=== PATIENT | male | born 1960 | race Caucasian/White ===

== ENCOUNTER 2020-03-12 08:00 | Outpatient (RCR) | payer BC, SELFPAY ==
--- NOTE | 2020-01-19 10:58 | PTOPEVAL ---
INITIAL PHYSICAL THERAPY EVALUATION and PLAN OF CARE Thank you for referring Petr Kelley to [facility]. Petr will be seen 1-2x/wk x 6 wks. Please review, sign, date and return this plan of care JAMA. I agree with and certify that the following plan of care is medically necessary. Referring Physician Date Admitting Provider: Attending Provider: Case Key, Referring Provider: *PT Outpatient Evaluation Start: 01/19/20 09:12 Freq: Status: Active Protocol: Document 01/19/20 09:00 MAX (Rec: 01/19/20 10:19 MAX [id number]) Therapy Assessment Status Assessment Status Assessment Status Evaluation Outpatient Past Medical History Past Medical History Source of Past Medical History Patient Neurological History Hx Neurological Disorders No Significant History Cardiovascular History Hx Cardiac Disorders No Significant History Respiratory History Hx Other Respiratory Disorders Yes: smokes 1ppd x 35 yrs Gastrointestinal History Hx Gastrointestinal Disorders No Significant History Genitourinary History Hx Genitourinary Disorders No Significant History Musculoskeletal History Hx Musculoskeletal Disorders No Significant History Endocrine History Hx Endocrine Disorders No Significant History HEENT History Hx Meniere's Syndrome Yes Hx Eye Surgery Yes: eye lens implant surgery- bilat ~ 5 yrs ago Other History Hx Other Medical Conditions Yes: recovering alcoholic - sober x1.5 yrs this episode Evaluation Information Problem Diagnosis vertigo Onset ~ 10 years Subjective Information Did see specialists in the Query Text:As Reported By Patient/ past - did receive medication Family for dizziness - didn't seem to help Episodes of dizziness have been occurring - usually was having dizziness with moving from horizontal to vertical positions - but lately when reclined in recliner - turning head to R - will feel the dizziness Occasionally when rolling over in bed, but definitely feels the dizziness with getting up from lying down - will move quickly Prior Level of Function Activity Level (Last 3 Months) Occupation did work for [employer] as [email or web address] Left Medications Home Meds (Include: OTC, RX, Vitamins, OTC sinus medication Herbals, D
--- NOTE | 2020-02-03 08:02 | PCPTNOTE ---
Petr called to cancel - he will be out of town.
--- NOTE | 2020-03-12 11:00 | PTOPEVAL ---
PHYSICAL THERAPY RE-EVALUATION and UPDATED PLAN OF CARE Thank you for referring Petr Kelley to [facility]. Petr has made gains in PT - he has received 5 visits. I think he would benefit from further skilled PT but he is not certain that he wants to continue or not. His plan of care needs to be renewed, therefore I went ahead and updated his plan of care in case he does continue. Please review, sign, date and return this plan of care JAMA. I agree with and certify that the following plan of care is medically necessary. Referring Physician Date Admitting Provider: Attending Provider: Case Key, Referring Provider: *PT Outpatient Evaluation Start: 01/19/20 09:12 Freq: Status: Active Protocol: Document 03/12/20 08:05 MAX (Rec: 03/12/20 10:47 MAX [id number]) Therapy Assessment Status Assessment Status Assessment Status Re-evaluation Evaluation Information Problem Subjective Information Petr states that he is able to Query Text:As Reported By Patient/ get on and off equipment at Family his property in [facility] okay - has to be careful. He still has difficulty walking initially after being in the car driving several hours. Walking in the dark is a slight bit better. He is working on trying to bend his knees more when walking up and down inclines and with walking in general. He was out shopping x 3 hours - increase leg fatigue present and increased difficulty with walking. Pain Assessment Timing of Pain Assessment Timing of Pain Assessment Assessment Self Report Self Report Pain Level 0 Pain Score Pain Score 0: Self Report Gait Assessment Gait Pattern Assessment Other Gait Observations in stance phase - knees are kept very straight - in a locked position, but knee flexion is present with swing phase. Heel/toe pattern present with increase in supination. PT Clinical Summary Clinical Summary Protocol: PTEVCODE PT Clinical Summary tandem standing - needs mild UE to get into position but can hold position 30 sec + each way. standing on fom with eyes open and eyes closed - greater
--- NOTE | 2020-04-09 15:01 | PCPTNOTE ---
PHYSICAL THERAPY DISCHARGE NOTE Admitting Provider: Attending Provider: Case Key, Patient:Petr Kelley Date of :1960 Petr has not returned for any further treatments since 03/12/2020, therefore he will be discharged at this time. ePtr?s initial visit was on 01/19/2020 09:00 and he had a total of 5 visits. The goals have been partially met. Thank you for referring Petr to [facility]. Please review, sign, date and return this discharge summary JAMA. I have been updated about Petr's current status and I agree with discharge from the above service at this time. Referring Physician Date
== END 2020-04-10 14:17 | disposition home or self-care (01) ==
LOC: ANHHIPT 08:00
PROVIDERS: PCP Internal Medicine; Visit Provider Internal Medicine
DX: R42 Dizziness and giddiness (principal)
CPT/HCPCS: 97110; 97162

== ENCOUNTER 2022-04-04 04:06 | Observation (INO) | payer BC, SELFPAY ==
[2022-04-04] VITALS (13 sets, daily range): BP systolic 115–160; BP diastolic 81–98; PULSE 55–116; RESP 18–22; TEMP 36.1–36.9; O2SAT 95–100; BMI 25.4; BMI 25.2
--- NOTE | 2022-04-04 | ECHO_ITS ---
Patient Info Name: Petr Kelley Age: 62 years : 1960 Gender: Male Ht: 69 in Wt: 172 lbs BSA: 1.96 m2 HR: 116 bpm BP: 119 / 83 mmHg Heart Rhythm: Sinus Rhythm Technical Quality: Fair Exam Date: 04/04/2022 8:51 AM Exam Location: [facility] Pulmonary Patient Status: Outpatient Admit Date: 04/04/2022 Staff Ordering Physician: Sandi Aguirre MD Real Estate Recruiter: America Chen RDCS Attending Provider: Efrain Benitez MD Referring Physician: Timothy HARLEY; Exam Type: CA echo doppler color flow Study Info Indications I48.0 - Paroxysmal atrial fibrillation Complete two-dimensional, color flow and Doppler transthoracic echocardiogram is performed. Summary 1. Complete two-dimensional, color flow and Doppler transthoracic echocardiogram is performed. 2. Left ventricular hypertrophy with hyperdynamic systolic function and grade 1 diastolic noncompliance. 3. No valvular dysfunction. 4. Normal atrial dimensions. Left Ventricle Left ventricular chamber dimension is normal. Left ventricular systolic function is hyperdynamic, estimated at >70%. There is moderate concentric increased left ventricular wall thickness. The left ventricular diastolic function is grade I diastolic dysfunction. Right Ventricle Right ventricular chamber dimension is normal. Left Atria Left atrial chamber dimension is normal. Right Atria Right atrial chamber dimension is normal. Aortic Valve The aortic valve is trileaflet. Pulmonic Valve The pulmonic valve is normal. Mitral Valve The mitral valve has normal leaflets. Tricuspid Valve The tricuspid valve leaflets are normal. Pericardium/Pleural The pericardium appears normal. Aorta The aortic root size at the sinus of Valsalva is normal. Left Ventricular Outflow Tract Name Value Normal LVOT 2D LVOT Diameter 2.1 cm LVOT Doppler LVOT Peak Gradient 5 mmHg LVOT Mean Gradient 3 mmHg LVOT VTI 18 cm LVOT VTI/AV VTI Ratio 1.0 LVOT Stroke Volume 64 ml LVOT CO 5.4 l/min LVOT CI 2.8 l/min/m2 Pulmonic Valve Name Value Normal PV Doppler PV Peak Gradient 4 mmHg Mitral Valve Name Value Normal MV Doppler MV Decel [place] 145 cm/s2 MV PHT 94 ms MV Area (PHT) 2.3 cm2 4.0-5.0 MV Diastolic Function
--- NOTE | ~2022-04-04 | US_ITS ---
EXAMINATION: US right upper quadrant DATE: 04/04/2022 14:31 INDICATION: Right upper quadrant pain TECHNIQUE: Multiple grayscale and Doppler ultrasound images of the abdomen were obtained. COMPARISON: None available FINDINGS: Bowel gas obscures visualization of the pancreas. The visualized portions of the pancreas a re unremarkable. The liver is normal with normal echogenicity and echotexture. No surface nodularity. Normal hepatopetal flow in the main portal vein. The gallbladder is normal with no abnormal wall thi ckening, pericholecystic fluid or stones. The normal common bile duct measures 5 mm. There was no son ographic [place] sign. IMPRESSION: 1. Normal sonographic study of the gallbladder. Reviewed, dictated and finalized at location B.
--- NOTE | 2022-04-04 04:18 | PC.NURSE ---
Direct admit from [facility] in room 231 at 0410 on 04/04/22. This patient, Petr Kelley, was admitted to IMU Room 231-01. Patient/family oriented to hospital policies and general routines including ID bracelet, bed and alarms, visiting hours, pain management, procedures, bathroom and other care routines, personal items, smoking policy, room service/diet, and visiting hours. Information on how to activate the Rapid Response Team has been discussed. Patient/Family are encouraged to report perceived risks to care and to ask questions if they do not understand what they are told or what they should do.
[2022-04-04] MEDS: diazePAM INJ (*CRX) 10 MG/2 ML SYRINGE 5 MG IV PUSH (04:33)
--- NOTE | 2022-04-04 04:36 | PM.IMHP ---
H&P: HPI History of Present Illness Date/Time: 04/04/22 04:36 Chief Complaint: tremors Narrative: This is a 62-year-old male with past medical history significant for alcohol dependence, tobacco dependence. Patient presents as a direct admit from [facility] where he was admitted due to alcohol withdrawal patient decided to go cold turkey on his alcohol intake for the last 2 days started dry heaving and having tremors no formication, no hallucinations, has been very anxious. Patient was found to have atrial fibrillation with rapid ventricular response placed on a Cardizem drip has been transferred to our facility for further evaluation management and treatment. Patient denies any fevers, rigors, chills, nausea, vomiting, diarrhea, abdominal pain, chest pain, shortness of breath, PND, orthopnea, ankle swelling, syncope, near syncope. Patient has a diffuse headache no vision changes. Patient drinks up to a pt of alcohol daily and smokes 1 pack of cigarettes daily. Review of Systems Review of Systems: Tremors, generalized anxiety. Constitutional: Constitutional: Denies chills, Denies fatigue, Denies fever(s), Denies malaise, Denies night sweats and Denies weakness Eyes: Eyes: Denies change in vision ENT: Denies dysphagia, Denies vertigo, Denies dizziness and Denies odynophagia Cardiovascular: Cardiovascular: Denies chest pain, Denies syncope, Denies lightheadedness and Denies palpitations Respiratory: Respiratory: Denies chest congestion, Denies cough, Denies excessive phlegm production, Denies pain on inspiration, Denies dyspnea on exertion and Denies wheezing Gastrointestinal: Gastrointestinal: Denies abdominal pain, Denies dyspepsia, Denies heartburn, Reports nausea and Denies vomiting Genitourinary: Genitourinary: Denies dysuria Musculoskeletal: Musculoskeletal: Denies back pain, Denies myalgias and Denies muscle weakness Integumentary/Breasts: Skin/Breast: Denies rash Neurologic: Denies vertigo, Denies dizziness, Reports headache(s), Denies focal weakness, Denies Sensory deficit (Neuro), Denies tingling, Denies paresthesias and Reports tremor(s) Psychiatric: Psychiatric: Reports anxiety, Denies auditory hallucinations and Denies visual hallucinations Endocrine: Endocrine: Denies cold intolerance, Denies flushing, Denies heat intolerance, Denies polyphagia, Denies polydipsia and Denies palpitations Hematologic/Lymphatic: Hematologic/Lymphatic: Reports no additional hematologic/lymphatic complaints and Reports as per HPI Allergic/Immunologic: Allergic/Immunologic: Reports no additional allergic/immunologic complaints and Reports as per HPI Meds Home Medications and Allergies Home Medications Medication Instructions Recorded Confirmed Type aspirin 81 mg tablet,delayed 81 mg PO DAILY 04/04/22 04/04/22 History release atorvastatin 80 mg tablet 80 mg PO HS 04/04/22 04/04/22 History clopidogrel 75 mg tablet 75 mg PO DAILY 04/04/22 04/04/22 History folic acid 1 mg tablet 1 mg PO DAILY 04/04/22 04/04/22 History hydroxyzine pamoate 25 mg capsule 25 mg PO TID PRN Anxiety 04/04/22 04/04/22 History sertraline 25 mg tablet 25 mg PO DAILY 04/04/22 04/04/22 History Allergies Allergy/AdvReac Type Severity Reaction Status Date / Time No Known Allergies Allergy Verified 04/04/22 04:24 Vital Signs Vital Signs - 24 hr 04/04/22 04:00 Temperature 98.0 F Pulse Rate 84 Respiratory Rate 22 H Blood Pressure 119/83 Pulse Oximetry 99 Exam Narrative: Patient is laying in bed Const: General: comfortable, no acute distress, well developed, alert, awake and other ( apprehensive, anxious) Nutritional Appearance: average body habitus Orientation/consciousness: patient oriented x3 HENMT: Head: normal to inspection, normocephalic and atraumatic Ears: hearing grossly normal bilaterally Face and sinus: normal facial exam Eyes: General: appearance normal, both eyes and all related structures Pupils: Equal
[2022-04-04] MEDS: ACETAMINOPHEN 325 MG TABLET 650 MG PO ×2 (05:10→10:00)
[2022-04-04 05:21] LABS: Glucose Point of Care 145 mg/dl (65-105)
[2022-04-04] MEDS: chlordiazePOXIDE (*CRX) 25 MG CAPSULE 50 MG PO ×3 (05:34→17:26)
[2022-04-04] MEDS: FUROSEMIDE INJ 40 MG/4 ML VIAL IV PUSH (05:34)
[2022-04-04 05:37] LABS: Basophils Absolute Auto 0.1 K/mm3 (0.0-0.1); Basophils Percent Auto 0.7 % (0.2-1.2); Hematocrit 39.9 % (42.0-52.0); Hemoglobin 13.9 g/dL (14.0-18.0); Immature Granulocyte Absolute 0.03 K/mm3 (0.00-0.031); Immature Granulocyte Percent A 0.3 % (0-0.5); Lymphocytes Absolute Auto 1.21 K/mm3 (0.9-3.2); Lymphocytes Percent Auto 13.7 % (18.3-44.2); Mean Corpuscular HGB Conc 34.8 g/dl (32-36); Mean Corpuscular Hemoglobin 30.8 pg (26-34); Mean Corpuscular Volume 88.3 fl (80-100); Mean Platelet Volume 9.2 fl (7.4-10.4); Monocytes Absolute Auto 0.7 K/mm3 (0.1-0.6); Monocytes Percent Auto 8.2 % (2.6-8.5); Neutrophils Absolute Auto 6.8 K/mm3 (1.3-6.7); Neutrophils Percent Auto 77.1 % (45.5-73.1); Platelet Count Result 238 k/mm3 (150-375); Red Blood Count 4.52 M/mm3 (4.6-6.20); Red Cell Distribution Width 15.9 % (11.5-14.5); White Blood Count 8.8 K/mm3 (4.5-10.0)
[2022-04-04 05:44] LABS: Phosphorus 2.2 mg/dL (2.5-4.5)
[2022-04-04 05:58] LABS: Alanine Aminotransferase 55 U/L (6-50); Albumin Level 4.3 g/dL (3.5-5.1); Alkaline Phosphatase 109 U/L (38-126); Anion Gap 10 mmol/L (8-16); Aspartate Amino Transferase 89 U/L (17-59); Bilirubin,Total 2.1 mg/dL (0.2-1.3); Blood Urea Nitrogen 8 mg/dL (9-20); Calcium 8.4 mg/dL (8.4-10.2); Carbon Dioxide 25 mmol/L (22-30); Chloride 97 mmol/L (98-107); Creatine Kinase 250 U/L (55-170); Estimated CRCL calculation 97 ml/min; Estimated Glomerular Filt Rate > 60; Glucose 122 mg/dL (65-110); Potassium 3.3 mmol/L (3.4-5.0); Sodium 132 mmol/L (137-145)
[2022-04-04] MEDS: THIAMINE HCL INJ 100 MG, FOLIC ACID INJ 1 MG, MULTIVITAMINS-12 INJ VIAL 1 5 ML, MULTIVI... IV CONT (06:31)
[2022-04-04] MEDS: dilTIAZem 100 MG/100 ML 100 MG/100 ML BAG IV CONT (06:34)
[2022-04-04] MEDS: ENOXAPARIN 80 MG/0.8 ML SYRINGE 78 MG SUB-Q (06:39)
--- NOTE | 2022-04-04 07:36 | ECG_ITS ---
Measurements Intervals [place] Rate: 84 P: NH: 0 QRS: -38 QRSD: 92 T: 24 QT: 403 QTc: 477 Interpretive Statements ATRIAL FIBRILLATION MARKED LEFT AXIS DEVIATION [QRS AXIS < -30] ABNORMAL ECG NO PREVIOUS ECG AVAILABLE FOR COMPARISON Electronically Signed On 04-04-2022 12:47:45 CDT by Merritt Mac M.D.
[2022-04-04] MEDS: LORazepam INJ (*CRX) 2 MG/ML VIAL 1 MG IV PUSH ×4 (08:07→20:23)
[2022-04-04] MEDS: SERTRALINE HCL 25 MG TABLET PO (08:08)
[2022-04-04] MEDS: hydrOXYzine pamoate 25 MG CAPSULE PO (08:08)
[2022-04-04] MEDS: CLOPIDOGREL BISULFATE 75 MG TABLET PO (08:08)
--- NOTE | 2022-04-04 08:36 | PM.CNCAR ---
Assessment and Plan Assessment and plan (1) A-fib: Code(s): I48.91 - Unspecified atrial fibrillation Status: Acute Plan 62-year-old patient with alcoholism who presents with alcohol withdrawal symptoms and was in atrial fib with RVR. He has spontaneously converted to sinus rhythm during my physical examination. The patient has no prior knowledge of any cardiac problems. For reasons that I cannot discern by speaking to him he is taking aspirin and clopidogrel. I am going to recommend stopping his diltiazem infusion and starting him on metoprolol. He is not a reasonable candidate for anticoagulation since he is in actively drinking alcoholic. We will review his echocardiogram after it is done but at this but time I believe I am simply going to recommend treating him with metoprolol and conservative follow-up. Merritt Mac MD [facility] History of Present Illness History of Present Illness Consult date/time: 04/04/22 08:36 Consult reason: atrial fibrillation Reason For Visit: New Afib with RVR Narrative: This is a 62-year-old man I am seeing this morning at the request of the hospitalist because of atrial fibrillation. He was transferred here from the emergency room at [place] yesterday because of atrial fibrillation with rapid ventricular response. He came to the emergency room up there last evening apparently because of significant headache that was attributed to alcohol withdrawal. He states he is a chronic alcoholic and drinks a lot of vodka and 1 of his friends encouraged him to try to quit drinking cold turkey. He states when he has done this in the past he develops severe headaches and he developed this last evening and so he went to the emergency room. He did not have any sense of palpitations tachycardia or any other symptoms in the chest to make him aware that he was in atrial fibrillation. While he was there he was found to be in AFib with RVR and he was of course placed on intravenous diltiazem and then transferred to this hospital for further management. He was in IMU since arrival here and states that he has been essentially asymptomatic. He has intravenous diltiazem running as well as a banana bag. He denies any symptoms of chest pain shortness of breath orthopnea PND or edema. He has never had a syncopal episode any does not remember having any sort of a cardiac problem in the past. He is not aware of what his previous medical problems are. There is a home med list on his chart that consists of aspirin atorvastatin and clopidogrel. He does not know if for why he is taking any of those medications. While I was in the middle of examining the patient he converted to sinus rhythm. He was unaware of the cardioversion either he feels no different whether he is in atrial fib or sinus rhythm Review of Systems Constitutional: Constitutional: Reports no additional constitutional complaints Eyes: Eyes: Reports no additional eye complaints ENT: Reports system reviewed and no additional complaints, except as documented Cardiovascular: Cardiovascular: Reports no additional cardiovascular complaints Respiratory: Respiratory: Reports no additional respiratory complaints Gastrointestinal: Gastrointestinal: Reports heartburn Musculoskeletal: Musculoskeletal: Reports no additional musculoskeletal complaints Integumentary/Breasts: Skin/Breast: Reports system reviewed and no additional complaints, except as docu Neurologic: Reports system reviewed and no additional complaints, except as documented Psychiatric: Comments: Chronic alcohol abuse/drinks a lot of vodka Endocrine: Endocrine: Reports no additional endocrine complaints Hematologic/Lymphatic: Hematologic/Lymphatic: Reports no additional hematologic/lymphatic complaints Allergic/Immunologic: Allergic/Immunologic: Reports no additional allergic/immunologic complaints [facility] Family History Family History (Updated 04/04/22 @ 05:29 by Jolanta Burroughs,
[2022-04-04] MEDS: METOPROLOL SUCCINATE EXT REL 50 MG TABCR PO (09:32)
[2022-04-04 09:36] LABS: Prothrombin Time 12.7 Seconds (11.1-14.7)
--- NOTE | 2022-04-04 09:42 | PM.IMPN ---
Progress Note: A&P Assessment and Plan (1) A-fib: Code(s): I48.91 - Unspecified atrial fibrillation Status: Acute (2) Alcohol withdrawal: Code(s): F10.939 - Alcohol use, unspecified with withdrawal, unspecified Status: Acute (3) EtOH dependence: Code(s): F10.20 - Alcohol dependence, uncomplicated Status: Acute (4) Tobacco dependence: Code(s): F17.200 - Nicotine dependence, unspecified, uncomplicated Status: Acute Plan # AFib with RVR started on anticoagulation. Converted spontaneously to sinus rhythm. Cardiology consulted. He was Started on Cardizem drip which has been discontinued now. Started on metoprolol. Not a candidate for anticoagulation as he is actively drinking. He is back on AFib # headache Tylenol p.r.n. # Alcohol withdrawal on CIWA protocol banana bag monitor electrolytes. On Librium p.o. and Ativan p.r.n. # electrolyte imbalances: Replace and monitor # alcohol dependence referral for a 12 step program as an outpatient basis. Elevated liver enzymes. # elevated liver enzymes check ultrasound liver hepatitis profile # tobacco dependence # hyperlipidemia # DVT prophylaxis Lovenox therapeutic dose will switch to DVT prophylaxis dose Subjective Date/time seen: 04/04/22 09:42 Interval history: HPI:This is a 62-year-old male with past medical history significant for alcohol dependence, tobacco dependence.? Patient presents as a direct admit from [facility] where he was admitted due to alcohol withdrawal? patient decided to go cold turkey on his alcohol intake for the last 2 days started dry heaving and having tremors no formication, no hallucinations, has been very anxious.? Patient was found to have atrial fibrillation with rapid ventricular response placed on a Cardizem drip has been transferred to our facility for further evaluation management and treatment.? Patient denies any fevers, rigors, chills, nausea, vomiting, diarrhea, abdominal pain, chest pain, shortness of breath, PND, orthopnea, ankle swelling, syncope, near syncope.? Patient has a diffuse headache no vision changes.? Patient drinks up to a pt of alcohol daily and? smokes 1 pack of cigarettes daily. 04/04/2022 no overnight events. Complains of some headache. No nausea. Is off Cardizem drip now and beta-marcus was given. Telemetry reviewed in sinus rhythm. Does not know why he is on aspirin and Plavix Review of Systems Review of Systems: All systems reviewed & are unremarkable except as noted in HPI and below Exam Narrative: GENERAL: The patient is well developed, a bit tremulous. Not in acute distress HEENT: Nonicteric sclerae, PERRLA, EOMI. Oropharynx clear. Dry mucous membranes. Conjunctivae appear well perfused. CHEST: Chest wall is nontender. HEART: Regular rate and rhythm without murmur, rubs, or gallops LUNGS: Clear to auscultation bilaterally. no respiratory distress ABDOMEN: Soft, positive bowel sounds, non-tender, no organomegaly. SKIN: No rash, no excessive bruising, petechiae, or purpura. NEUROLOGIC: Cranial nerves II-XII intact, alert and oriented x 3, no gross motor deficits EXTREMITIES: no edema, cyanosis or clubbing Objective Data Vital Signs Vital Signs: Vital Signs - 24 hr 04/04/22 04:00 04/04/22 06:34 04/04/22 08:00 Temperature 98.0 F Pulse Rate 84 116 H Respiratory Rate 22 H Blood Pressure 119/83 Pulse Oximetry 99 Oxygen Delivery Room Air 04/04/22 08:00 04/04/22 09:32 04/04/22 09:35 Temperature 97.3 F L Pulse Rate 55 L 87 84 Respiratory Rate 22 H Blood Pressure 160/82 H 160/82 H Pulse Oximetry 100 Oxygen Delivery Intake/Output Intake/Output: Intake & Output 04/01/22 04/02/22 04/03/22 04/04/22 23:59 23:59 23:59 23:59 Intake Total 100 Output Total 1150 Balance -1050 Meds/Results Medications: Active Medications Generic Name Dose Route Start Last Admin Trade Name Freq PRN Reason Stop Dose Admin Diego
[2022-04-04 10:54] LABS: Hepatitis B Surface Antigen Negative (Negative)
[2022-04-04 11:00] LABS: HAV RESULT Negative (Negative); Hepatitis B Core IgM Result Negative (Negative)
[2022-04-04] MEDS: POTASSIUM PHOS,M-BASIC-D-BASIC 40 MMOL in SODIUM CHLORIDE 0.9% IV 250 ML 43.89 MMOL IVPB (11:07)
[2022-04-04 11:11] LABS: Hepatitis C Virus Antibody Negative (Negative)
[2022-04-04 11:34] LABS: Glucose Point of Care 113 mg/dl (65-105)
[2022-04-04 18:09] LABS: Glucose Point of Care 107 mg/dl (65-105)
[2022-04-05] VITALS (16 sets, daily range): BP systolic 123–147; BP diastolic 79–95; PULSE 66–110; RESP 18–20; TEMP 36.3–37.2; O2SAT 96–100
[2022-04-05 00:21] LABS: Glucose Point of Care 101 mg/dl (65-105)
[2022-04-05] MEDS: chlordiazePOXIDE (*CRX) 25 MG CAPSULE 50 MG PO ×5 (00:40→23:00)
[2022-04-05] MEDS: LORazepam INJ (*CRX) 2 MG/ML VIAL 1 MG IV PUSH ×2 (00:52→04:17)
[2022-04-05 04:51] LABS: Basophils Absolute Auto 0.1 K/mm3 (0.0-0.1); Basophils Percent Auto 1.2 % (0.2-1.2); Eosinophils Absolute Auto 0.1 K/mm3 (0-0.3); Eosinophils Percent Auto 2.2 % (0-4.4); Hematocrit 38.7 % (42.0-52.0); Hemoglobin 13.2 g/dL (14.0-18.0); Immature Granulocyte Absolute 0.02 K/mm3 (0.00-0.031); Immature Granulocyte Percent A 0.4 % (0-0.5); Lymphocytes Percent Auto 35.2 % (18.3-44.2); Mean Corpuscular HGB Conc 34.1 g/dl (32-36); Mean Corpuscular Hemoglobin 31.1 pg (26-34); Mean Corpuscular Volume 91.1 fl (80-100); Mean Platelet Volume 9.2 fl (7.4-10.4); Monocytes Absolute Auto 0.5 K/mm3 (0.1-0.6); Neutrophils Absolute Auto 2.6 K/mm3 (1.3-6.7); Platelet Count Result 175 k/mm3 (150-375); Red Blood Count 4.25 M/mm3 (4.6-6.20); Red Cell Distribution Width 16.5 % (11.5-14.5); White Blood Count 5.1 K/mm3 (4.5-10.0)
[2022-04-05 05:05] LABS: Alanine Aminotransferase 47 U/L (6-50); Albumin Level 3.9 g/dL (3.5-5.1); Alkaline Phosphatase 86 U/L (38-126); Anion Gap 6 mmol/L (8-16); Aspartate Amino Transferase 66 U/L (17-59); Bilirubin,Total 1.2 mg/dL (0.2-1.3); Blood Urea Nitrogen 13 mg/dL (9-20); Calcium 8.7 mg/dL (8.4-10.2); Carbon Dioxide 29 mmol/L (22-30); Chloride 98 mmol/L (98-107); Estimated CRCL calculation 69 ml/min; Estimated Glomerular Filt Rate > 60; Glucose 90 mg/dL (65-110); Magnesium 2.2 mg/dL (1.6-2.3); Phosphorus 4.1 mg/dL (2.5-4.5); Potassium 3.2 mmol/L (3.4-5.0); Sodium 133 mmol/L (137-145)
--- NOTE | 2022-04-05 08:26 | PM.IMPN ---
Progress Note: A&P Assessment and Plan (1) A-fib: Code(s): I48.91 - Unspecified atrial fibrillation Status: Acute (2) Alcohol withdrawal: Code(s): F10.939 - Alcohol use, unspecified with withdrawal, unspecified Status: Acute (3) EtOH dependence: Code(s): F10.20 - Alcohol dependence, uncomplicated Status: Acute (4) Tobacco dependence: Code(s): F17.200 - Nicotine dependence, unspecified, uncomplicated Status: Acute Plan # AFib with RVR started on anticoagulation. Converted spontaneously to sinus rhythm. Cardiology consulted. He was Started on Cardizem drip which has been discontinued now. Started on metoprolol. Not a candidate for anticoagulation as he is actively drinking. He is back on sinus rhythm. And remains in sinus rhythm # headache Tylenol p.r.n. # Alcohol withdrawal on CIWA protocol banana bag monitor electrolytes. On Librium p.o. and Ativan p.r.n. CIWA score decreasing. received a dose of Valium and Lasix at night # electrolyte imbalances: Replace and monitor. Replace potassium today # alcohol dependence referral for a 12 step program as an outpatient basis. Elevated liver enzymes. # elevated liver enzymes right upper quadrant ultrasound unremarkable. hepatitis profile Negative # tobacco dependence # hyperlipidemia # DVT prophylaxis Lovenox therapeutic dose will switch to DVT prophylaxis dose Subjective Date/time seen: 04/05/22 08:26 Interval history: HPI:This is a 62-year-old male with past medical history significant for alcohol dependence, tobacco dependence.? Patient presents as a direct admit from [facility] where he was admitted due to alcohol withdrawal? patient decided to go cold turkey on his alcohol intake for the last 2 days started dry heaving and having tremors no formication, no hallucinations, has been very anxious.? Patient was found to have atrial fibrillation with rapid ventricular response placed on a Cardizem drip has been transferred to our facility for further evaluation management and treatment.? Patient denies any fevers, rigors, chills, nausea, vomiting, diarrhea, abdominal pain, chest pain, shortness of breath, PND, orthopnea, ankle swelling, syncope, near syncope.? Patient has a diffuse headache no vision changes.? Patient drinks up to a pt of alcohol daily and? smokes 1 pack of cigarettes daily. 04/04/2022 no overnight events. Complains of some headache. No nausea. Is off Cardizem drip now and beta-marcus was given. Telemetry reviewed in sinus rhythm. Does not know why he is on aspirin and Plavix 04/05/2022 replace potassium. CIWA score improved this morning 7. Continue to monitor for alcohol withdrawal currently on Librium. No other complaints feels better Review of Systems Review of Systems: All systems reviewed & are unremarkable except as noted in HPI and below Exam Narrative: GENERAL: The patient is well developed, less tremulous. Not in acute distress HEENT: Nonicteric sclerae, PERRLA, EOMI. Oropharynx clear. Dry mucous membranes. Conjunctivae appear well perfused. CHEST: Chest wall is nontender. HEART: Regular rate and rhythm without murmur, rubs, or gallops LUNGS: Clear to auscultation bilaterally. no respiratory distress ABDOMEN: Soft, positive bowel sounds, non-tender, no organomegaly. SKIN: No rash, no excessive bruising, petechiae, or purpura. NEUROLOGIC: Cranial nerves II-XII intact, alert and oriented x 3, no gross motor deficits EXTREMITIES: no edema, cyanosis or clubbing Objective Data Vital Signs Vital Signs: Vital Signs - 24 hr 04/04/22 09:32 04/04/22 09:35 04/04/22 08:37 Temperature Pulse Rate 87 84 84 Respiratory Rate Blood Pressure 160/82 H Pulse Oximetry Oxygen Delivery 04/04/22 10:10 04/04/22 12:00 04/04/22 12:00 Temperature 98.4 F Pulse Rate 81 81 82 Respiratory Rate 22 H 20 Blood Pressure 133/82 Pulse Oximetry 100 95 Oxygen Delivery Room Air
[2022-04-05] MEDS: POTASSIUM CHLORIDE 20 MEQ TABLET 40 MEQ PO (10:15)
[2022-04-05] MEDS: METOPROLOL SUCCINATE EXT REL 50 MG TABCR PO (10:31)
[2022-04-05] MEDS: CLOPIDOGREL BISULFATE 75 MG TABLET PO (10:31)
[2022-04-05] MEDS: ENOXAPARIN 40 MG/0.4 ML SYRINGE SUB-Q (10:32)
[2022-04-05] MEDS: SERTRALINE HCL 25 MG TABLET PO (10:32)
[2022-04-05 11:35] LABS: Glucose Point of Care 110 mg/dl (65-105)
--- NOTE | 2022-04-05 14:26 | PM.PNCARD ---
Progress Note: A&P Assessment and Plan (1) A-fib: Code(s): I48.91 - Unspecified atrial fibrillation Status: Acute Assessment and Plan: Still in sinus rhythm. Continue beta-marcus and clopidogrel. Because of his alcohol use, previously deemed not an anticoagulation candidate at this point. (2) Alcohol withdrawal: Code(s): F10.939 - Alcohol use, unspecified with withdrawal, unspecified Status: Acute Assessment and Plan: Alcohol and tobacco cessation counseling advised (3) Tobacco dependence: Code(s): F17.200 - Nicotine dependence, unspecified, uncomplicated Status: Acute Assessment and Plan: Tobacco abuse counseling (4) Hypokalemia: Code(s): E87.6 - Hypokalemia Status: Acute Assessment and Plan: KCL 40 mEq p.o. x1 Subjective Date/time seen: 04/05/22 14:26 Interval history: HPI:This is a 62-year-old male with past medical history significant for alcohol dependence, tobacco dependence.? Patient presents as a direct admit from [facility] where he was admitted due to alcohol withdrawal? patient decided to go cold turkey on his alcohol intake for the last 2 days started dry heaving and having tremors no formication, no hallucinations, has been very anxious.? Patient was found to have atrial fibrillation with rapid ventricular response placed on a Cardizem drip has been transferred to our facility for further evaluation management and treatment.? Date of service 04/05/2022: He is feeling little bit better. No chest pain or shortness of breath. Review of Systems Constitutional: Constitutional: Reports no additional constitutional complaints Eyes: Eyes: Reports no additional eye complaints ENT: Reports system reviewed and no additional complaints, except as documented Cardiovascular: Cardiovascular: Reports no additional cardiovascular complaints Respiratory: Respiratory: Reports no additional respiratory complaints Gastrointestinal: Gastrointestinal: Reports heartburn Musculoskeletal: Musculoskeletal: Reports no additional musculoskeletal complaints Integumentary/Breasts: Skin/Breast: Reports system reviewed and no additional complaints, except as docu Neurologic: Reports system reviewed and no additional complaints, except as documented Endocrine: Endocrine: Reports no additional endocrine complaints Hematologic/Lymphatic: Hematologic/Lymphatic: Reports no additional hematologic/lymphatic complaints Allergic/Immunologic: Allergic/Immunologic: Reports no additional allergic/immunologic complaints Exam Narrative: Appears stated age Const: General: comfortable and no acute distress Other: Well-developed well-nourished white male appears about his stated age no distress at this time HENMT: Mouth: Yes moist mucous membranes Eyes: Sclera: sclerae normal Neck: Neck: supple and no JVD Other: Carotid pulses are unremarkable bilateral Resp: Effort & Inspection: normal respiratory effort Auscultation: clear to auscultation bilaterally Cardio: Rate: regular rate Rhythm: regular rhythm Other: No murmur no gallop no rub GI: Auscultation: normal bowel sounds Skin: General skin exam: normal color Neuro: Speech: normal speech Other: Alert and oriented x3 Extrem: General: no edema Other: Adequate distal pulses/no edema Psych: Mental Status: mental status grossly normal Objective Data Vital Signs Vital Signs: Vital Signs - 24 hr 04/04/22 16:00 04/04/22 16:00 04/04/22 16:00 Temperature 36.8 C Pulse Rate 76 76 80 Respiratory Rate 20 18 Blood Pressure 115/98 H Pulse Oximetry 95 98 Oxygen Delivery Room Air 04/04/22 20:00 04/04/22 23:42 04/05/22 03:38 Temperature 36.1 C L 36.9 C 36.6 C Pulse Rate 78 77 77 Respiratory Rate 20 20 20 Blood Pressure 151/81 H 145/98 H 147/85 H Pulse Oximetry 99 98 99 Oxygen Delivery 04/05/22 08:16 04/04/22 20:00 04/04/22 20:00 Temperature 36.6 C Pu
[2022-04-05] MEDS: POTASSIUM CHLORIDE 20 MEQ PACKET (FOR LIQUID) 40 MEQ PO (15:15)
[2022-04-05 16:24] LABS: Glucose Point of Care 99 mg/dl (65-105)
[2022-04-05 18:09] LABS: Glucose Point of Care 146 mg/dl (65-105)
[2022-04-05 19:52] LABS: Glucose Point of Care 134 mg/dl (65-105)
[2022-04-06 03:45] VITALS: BP 127/94; PULSE 68; RESP 17; TEMP 36.3; O2SAT 96
[2022-04-06 04:00] VITALS: BP 127/94
[2022-04-06] MEDS: chlordiazePOXIDE (*CRX) 25 MG CAPSULE 50 MG PO (05:04)
[2022-04-06 05:16] LABS: Basophils Absolute Auto 0.1 K/mm3 (0.0-0.1); Basophils Percent Auto 0.9 % (0.2-1.2); Eosinophils Absolute Auto 0.2 K/mm3 (0-0.3); Eosinophils Percent Auto 3.8 % (0-4.4); Hematocrit 37.5 % (42.0-52.0); Hemoglobin 12.6 g/dL (14.0-18.0); Immature Granulocyte Absolute 0.02 K/mm3 (0.00-0.031); Immature Granulocyte Percent A 0.4 % (0-0.5); Lymphocytes Absolute Auto 1.66 K/mm3 (0.9-3.2); Lymphocytes Percent Auto 30.2 % (18.3-44.2); Mean Corpuscular HGB Conc 33.6 g/dl (32-36); Mean Corpuscular Hemoglobin 31.3 pg (26-34); Mean Corpuscular Volume 93.3 fl (80-100); Mean Platelet Volume 9.7 fl (7.4-10.4); Monocytes Absolute Auto 0.6 K/mm3 (0.1-0.6); Monocytes Percent Auto 10.7 % (2.6-8.5); Platelet Count Result 148 k/mm3 (150-375); Red Blood Count 4.02 M/mm3 (4.6-6.20); Red Cell Distribution Width 16.4 % (11.5-14.5); White Blood Count 5.5 K/mm3 (4.5-10.0)
[2022-04-06 05:24] LABS: Alanine Aminotransferase 48 U/L (6-50); Albumin Level 3.9 g/dL (3.5-5.1); Alkaline Phosphatase 92 U/L (38-126); Anion Gap 10 mmol/L (8-16); Aspartate Amino Transferase 62 U/L (17-59); Bilirubin,Total 0.9 mg/dL (0.2-1.3); Blood Urea Nitrogen 13 mg/dL (9-20); Carbon Dioxide 24 mmol/L (22-30); Chloride 102 mmol/L (98-107); Estimated CRCL calculation 77 ml/min; Estimated Glomerular Filt Rate > 60; Glucose 95 mg/dL (65-110); Magnesium 1.9 mg/dL (1.6-2.3); Phosphorus 3.2 mg/dL (2.5-4.5); Potassium 3.6 mmol/L (3.4-5.0); Sodium 136 mmol/L (137-145)
[2022-04-06 08:25] LABS: Glucose Point of Care 112 mg/dl (65-105)
[2022-04-06 08:27] VITALS: PULSE 78
[2022-04-06] MEDS: METOPROLOL SUCCINATE EXT REL 50 MG TABCR PO (08:27)
[2022-04-06] MEDS: SERTRALINE HCL 25 MG TABLET PO (08:27)
[2022-04-06] MEDS: CLOPIDOGREL BISULFATE 75 MG TABLET PO (08:27)
[2022-04-06] MEDS: ENOXAPARIN 40 MG/0.4 ML SYRINGE SUB-Q (08:30)
--- NOTE | 2022-04-06 08:52 | PM.PNCARD ---
Progress Note: A&P Assessment and Plan (1) A-fib: Code(s): I48.91 - Unspecified atrial fibrillation Status: Acute Assessment and Plan: Still in sinus rhythm. Continue beta-marcus and clopidogrel. Because of his alcohol use, previously deemed not an anticoagulation candidate at this point. (2) Alcohol withdrawal: Code(s): F10.939 - Alcohol use, unspecified with withdrawal, unspecified Status: Acute Assessment and Plan: Alcohol and tobacco cessation counseling advised (3) Tobacco dependence: Code(s): F17.200 - Nicotine dependence, unspecified, uncomplicated Status: Acute Assessment and Plan: Tobacco abuse counseling (4) Hypokalemia: Code(s): E87.6 - Hypokalemia Status: Acute Assessment and Plan: Additional dose of KCL 40 mEq p.o. x1 now Subjective Date/time seen: 04/06/22 08:52 Interval history: HPI:This is a 62-year-old male with past medical history significant for alcohol dependence, tobacco dependence.? Patient presents as a direct admit from [facility] where he was admitted due to alcohol withdrawal? patient decided to go cold turkey on his alcohol intake for the last 2 days started dry heaving and having tremors no formication, no hallucinations, has been very anxious.? Patient was found to have atrial fibrillation with rapid ventricular response placed on a Cardizem drip has been transferred to our facility for further evaluation management and treatment.? Date of service 04/05/2022: He is feeling little bit better. No chest pain or shortness of breath. Date of service 04/06/2022: Confused. Dressed and ready to go. No chest pain or shortness of breath Review of Systems Constitutional: Constitutional: Reports no additional constitutional complaints Eyes: Eyes: Reports no additional eye complaints ENT: Reports system reviewed and no additional complaints, except as documented Cardiovascular: Cardiovascular: Reports no additional cardiovascular complaints Respiratory: Respiratory: Reports no additional respiratory complaints Gastrointestinal: Gastrointestinal: Reports heartburn Musculoskeletal: Musculoskeletal: Reports no additional musculoskeletal complaints Integumentary/Breasts: Skin/Breast: Reports system reviewed and no additional complaints, except as docu Neurologic: Reports system reviewed and no additional complaints, except as documented Endocrine: Endocrine: Reports no additional endocrine complaints Hematologic/Lymphatic: Hematologic/Lymphatic: Reports no additional hematologic/lymphatic complaints Allergic/Immunologic: Allergic/Immunologic: Reports no additional allergic/immunologic complaints Exam Narrative: Appears stated age Const: General: comfortable and no acute distress Other: Well-developed well-nourished white male appears about his stated age no distress at this time HENMT: Mouth: Yes moist mucous membranes Eyes: Sclera: sclerae normal Neck: Neck: supple and no JVD Other: Carotid pulses are unremarkable bilateral Resp: Effort & Inspection: normal respiratory effort Auscultation: clear to auscultation bilaterally Cardio: Rate: regular rate Rhythm: regular rhythm Other: No murmur no gallop no rub GI: Auscultation: normal bowel sounds Skin: General skin exam: normal color Neuro: Speech: normal speech Other: Alert and oriented x3 Extrem: General: no edema Other: Adequate distal pulses/no edema Psych: Mental Status: mental status grossly normal Objective Data Vital Signs Vital Signs: Vital Signs - 24 hr 04/05/22 10:31 04/05/22 12:18 04/05/22 10:00 Temperature 37.2 C Pulse Rate 84 78 96 Respiratory Rate 18 Blood Pressure 132/88 Pulse Oximetry 96 Oxygen Delivery 04/05/22 12:00 04/05/22 12:00 04/05/22 14:00 Temperature Pulse Rate 66 110 H Respiratory Rate Blood Pressure Pulse Oximetry Oxygen Delivery Room Air
--- NOTE | 2022-04-06 09:43 | PC.NURSE ---
Patient was seen by cardiology this morning and states the doctor told me I'm being discharged today . This RN called the hospitalist Dr. Benitez and confirmed that the patient needs to be tapered off of Librium before being discharged. Patient was upset after learning of this and stated he would like to leave AMA, education was given. While waiting for the AMA papers, this patient walked to the nurses station with his belongings and was cursing out loud nobody knows their Fing left from their right around here . IV's were removed, patient signed AMA papers and was walked out by the SOCIOLOGY RESEARCH ASSISTANT.
--- NOTE | 2022-04-06 15:42 | PM.DS ---
DS: Admitting Diagnosis Discharge Date 04/06/22 Admitting Diagnosis alcohol withdrawal DS: Discharge Diagnosis Discharge Diagnosis (1) A-fib: Code(s): I48.91 - Unspecified atrial fibrillation Status: Acute (2) Alcohol withdrawal: Code(s): F10.939 - Alcohol use, unspecified with withdrawal, unspecified Status: Acute (3) EtOH dependence: Code(s): F10.20 - Alcohol dependence, uncomplicated Status: Acute (4) Tobacco dependence: Code(s): F17.200 - Nicotine dependence, unspecified, uncomplicated Status: Acute DS: Summary Hospital Course Hospital Course: # AFib with RVR started on anticoagulation. Converted spontaneously to sinus rhythm. Cardiology consulted. He was Started on Cardizem drip which has been discontinued now. Started on metoprolol. Not a candidate for anticoagulation as he is actively drinking. He is back on sinus rhythm. And remains in sinus rhythm # headache Tylenol p.r.n. # Alcohol withdrawal on CIWA protocol banana bag monitor electrolytes. On Librium p.o. and Ativan p.r.n. CIWA score decreasing. Patient continued to improve. Patient was wanted to be discharged. However did not wanted to wait until like when evaluated him. Left against medical advise before I reach there.. # electrolyte imbalances: Replace and monitor. Replace potassium P.r.n. # alcohol dependence referral for a 12 step program as an outpatient basis. Elevated liver enzymes. # elevated liver enzymes right upper quadrant ultrasound unremarkable. hepatitis profile Negative # tobacco dependence # hyperlipidemia # DVT prophylaxis Lovenox Time Spent with Patient Time attestation: Total time spent providing and/or coordinating discharge services:30 minutes Exam Narrative: did not examine on the day of discharge due to patient leaving against medical advice DS: Data Data Completed and Pending Labs on day of discharge: Labs from last 24 hours 04/06/22 04/06/22 04/06/22 08:21 04:48 04:48 WBC 5.5 RBC 4.02 L Hgb 12.6 L Hct 37.5 L MCV 93.3 MCH 31.3 MCHC 33.6 RDW 16.4 H Plt Count 148 L MPV 9.7 Immature Gran % (Auto) 0.4 Neut % (Auto) 54.0 Lymph % (Auto) 30.2 [place] % (Auto) 10.7 H Eos % (Auto) 3.8 Baso % (Auto) 0.9 Lymph # (Auto) 1.66 [place] # (Auto) 0.6 Eos # (Auto) 0.2 Baso # (Auto) 0.1 Abs Immat Gran (auto) 0.02 Absolute Neuts (auto) 3.0 Absolute Nucleated RBC 0.0 Nucleated RBC % 0.0 Sodium 136 L Potassium 3.6 Chloride 102 Carbon Dioxide 24 Anion Gap 10 BUN 13 Creatinine 0.90 Estim Creat Clear Calc 77 Estimated GFR > 60 Glucose 95 POC Capillary Glucose 112 H Calcium 9.0 Phosphorus 3.2 Magnesium 1.9 Total Bilirubin 0.9 AST 62 H ALT 48 Alkaline Phosphatase 92 Total Protein 7.0 Albumin 3.9 04/05/22 04/05/22 04/05/22 19:35 18:06 16:09 WBC RBC Hgb Hct MCV MCH MCHC RDW Plt Count MPV Immature Gran % (Auto) Neut % (Auto) Lymph % (Auto) [place] % (Auto) Eos % (Auto) Baso % (Auto) Lymph # (Auto) [place] # (Auto) Eos # (Auto) Baso # (Auto) Abs Immat Gran (auto) Absolute Neuts (auto) Absolute Nucleated RBC Nucleated RBC % Sodium Potassium Chloride Carbon Dioxide Anion Gap BUN Creatinine Estim Creat Clear Calc Estimated GFR Glucose POC Capillary Glucose 134 H 146 H 99 Calcium Phosphorus Magnesium Total Bilirubin AST ALT Alkaline Phosphatase Total Protein Albumin Imaging Radiologist's impression: ITS Impressions Upper Quadrant Ultrasound 04/04/22 14:32 IMPRESSION: 1. Normal sonographic study of the gallbladder. Discharge Plan Discharge Attending physician on discharge: Efrain Benitez Consulting providers: Sarah Swain
== END 2022-04-06 09:40 | disposition left against medical advice (07) ==
LOC: ANHIMU 07:34 → ANH2MED 04-05 16:38
PROVIDERS: Specialist; Admitting Provider Internal Medicine; PCP Internal Medicine; Visit Provider Internal Medicine
DX: I48.91 Unspecified atrial fibrillation (principal); F10.239 Alcohol dependence with withdrawal, unspecified; F17.210 Nicotine dependence, cigarettes, uncomplicated; R74.01 Elevation of levels of liver transaminase levels; E78.5 Hyperlipidemia, unspecified; I50.40 Unspecified combined systolic (congestive) and diastolic (congestive) heart failure; R10.11 Right upper quadrant pain; F14.11 Cocaine abuse, in remission; R94.31 Abnormal electrocardiogram [ECG] [EKG]; Z79.82 Long term (current) use of aspirin; Z79.02 Long term (current) use of antithrombotics/antiplatelets; Z79.899 Other long term (current) drug therapy; Z82.49 Family history of ischemic heart disease and other diseases of the circulatory system
CPT/HCPCS: 36415; 76705; 80053; 80074; 82550; 82948; 83735; 84100; 85025; 85610; 93005; 93306; 96365; 96366; 96367; 96368; 96372; 96375; 96376; 97165; A9270; G0378; G0379; J1650; J1940; J2060; J3360; J3411; J3475; J7042; J7050

== ENCOUNTER 2022-04-27 20:17 | Emergency (ER) | payer BC, SELFPAY ==
--- NOTE | ~2022-04-27 | XR_ITS ---
EXAM: XR pelvis 1-2V DATE: 04/27/2022 21:31 HISTORY: fall TODAY, LT POSTERIOR BRUISING TO BUTTOCK . COMPARISON: None available. FINDINGS: Normal mineralization. No fracture or dislocation. No lytic or blastic lesion. Degenerativ e disc disease in the lumbar spine. Mild degenerative change in the bilateral hips. No erosion or per iosteal change. Prostatic calcification. IMPRESSION: No acute osseous finding in the pelvis. Reviewed, dictated and finalized at location K.
[2022-04-27 20:20] VITALS: BP 114/81; PULSE 84; RESP 20; TEMP 36.3; O2SAT 96
--- NOTE | 2022-04-27 20:46 | PC.NURSE ---
Pt can be heard cursing loudly to visitor sitting at bedside by this RN at charge desk.
--- NOTE | 2022-04-27 21:15 | ED.GENADULT ---
HPI - General Adult General Chief complaint: Extremity Injury, Lower Stated complaint: L hip pain after fall Time Seen by Provider: 04/27/22 20:45 History of Present Illness HPI narrative: This is a 62-year-old male presenting ED with left hip pain. Patient had a fall approximately 2 weeks ago. Said that he fell backwards down his steps and landed on his left buttock. He says that he was seen at [facility] where he was found to be in AFib and then transferred here for cardiac evaluation. The patient says that he received evaluation for his hip at that time and that everything was okay. He is a poor historian. Additionally he has been having continued pain since then. Mostly is when he goes upstairs. He does have significant bruising over his left buttocks. He has not had any numbness tingling or weakness. He does not have pain at rest. Patient admits to alcohol use today. His is at bedside and says that he is acting how he normally acts when he drinks. Related Data Home Medications Medication Instructions Recorded Confirmed aspirin 81 mg tablet,delayed 81 mg PO DAILY 04/04/22 04/04/22 release atorvastatin 80 mg tablet 80 mg PO HS 04/04/22 04/04/22 clopidogrel 75 mg tablet 75 mg PO DAILY 04/04/22 04/04/22 folic acid 1 mg tablet 1 mg PO DAILY 04/04/22 04/04/22 hydroxyzine pamoate 25 mg capsule 25 mg PO TID PRN Anxiety 04/04/22 04/04/22 sertraline 25 mg tablet 25 mg PO DAILY 04/04/22 04/04/22 Allergies Allergy/AdvReac Type Severity Reaction Status Date / Time No Known Allergies Allergy Verified 04/27/22 20:28 Review of Systems Review of Systems: CONSTITUTIONAL: Denies night sweats. EYES: No eye pain ENT: Denies rhinorrhea CARDIOVASCULAR: Denies palpitations RESPIRATORY: Denies hemoptysis GASTROINTESTINAL: Denies hematemesis GENITOURINARY: Denies hematuria. SKIN: Denies rash MUSCULOSKELETAL: Denies myalgia. NEUROLOGIC: Denies weakness. PSYCHIATRIC: Denies delusions PMFSH Past Medical History Medical History (Updated 04/27/22 @ 21:28 by Jaret Chery MD) EtOH dependence Family History Family History Father Congestive heart failure Mother Congestive heart failure Sibling Congestive heart failure Social History Social History Smoking packs per day: 1 Smoking cigarettes per day: 20.0 Years smoked: 35 Smoking pack-years: 35.00 Smoking status: Current every day smoker Tobacco type: cigarettes Second hand tobacco smoke exposure: No Alcohol intake: current Drinks per week: 14 Substance use: former Substance use type: crack/cocaine Last use: 2-3 weeks Spiritual care concerns: No Exam Narrative: APPEARANCE: No apparent distress. Head atraumatic. EYES: PERRLA/EOMI, NOSE: Normal no drainage NECK: Supple, Trachea midline RESPIRATORY: CTAB, No increased work of breathing. CARDIOVASCULAR: S1S2 appreciated ABDOMINAL: Soft, nontender, nondistended, MUSCULOSKELETAl: patient has bruises over essentially the entire left gluteal muscle extending from the gluteal cleft to the left lateral hip. The compartments are soft. There is no area of fluctuance or rigidity may indicate a hematoma. The patient is able to ambulate otherwise gait is unsteady from alcohol use. He +pulses are +2 in the PT and DP distributions. Cap refills less than 2 seconds. NEURO: Alert. Cranial nerves 2-12 grossly intact. Sensation light touch, motor function cerebellar function intact for 4 extremities. Patient's gait was unsteady SKIN:: Warm, dry. Normal color PSYCHIATRIC: Normal affect Course Vital Signs Vital signs: Vital Signs Temperature 97.4 F L 04/27/22 20:20 Pulse Rate 84 04/27/22 20:20 Respiratory Rate 20 04/27/22 20:20 Blood Pressure 114/81 04/27/22 20:20 Pulse Oximetry 96 04/27/22 20:20 Oxygen Delivery Room Air 04/27/22 20:20
[2022-04-27] MEDS: ACETAMINOPHEN 500 MG TABLET 1000 MG PO (21:19)
== END 2022-04-27 21:37 | disposition home or self-care (01) ==
PROVIDERS: Emergency Provider Emergency Medicine; PCP Physician Assistant Medical
DX: M25.552 Pain in left hip (principal); S30.0XXD Contusion of lower back and pelvis, subsequent encounter; F10.20 Alcohol dependence, uncomplicated; Y90.9 Presence of alcohol in blood, level not specified; F17.210 Nicotine dependence, cigarettes, uncomplicated; Z79.82 Long term (current) use of aspirin; W10.9XXD Fall (on) (from) unspecified stairs and steps, subsequent encounter
CPT/HCPCS: 72170; 99283; A9270

== ENCOUNTER 2022-05-25 16:49 | Emergency (ER) | payer BC, SELFPAY ==
[2022-05-25 16:59] VITALS: BP 169/112; PULSE 66; RESP 18; TEMP 36.4; O2SAT 100
--- NOTE | 2022-05-25 17:03 | ED.GENADULT ---
HPI - General Adult General Stated complaint: swollen tongue and throat History of Present Illness HPI narrative: Patient is a 62-year-old male who presents to the [facility] via POV for an evaluation of difficulty swallowing and tongue swelling that began 2 days ago. Additionally, he reports shortness of breath, dizziness, and restlessness. No relief with hydroxyzine or Benadryl. Symptoms resolved at night and worsened in the mornings Related Data Home Medications Medication Instructions Recorded Confirmed hydroxyzine pamoate 50 mg capsule 50 mg QID 05/25/22 05/25/22 Allergies Allergy/AdvReac Type Severity Reaction Status Date / Time No Known Allergies Allergy Verified 05/25/22 17:19 Review of Systems Review of Systems: Denies fever, chills, sweats, change in appetite, poor p.o. intake, headaches, LOC, sinus problems, drooling, difficulty swallowing, sore throat, abdominal pain, nausea, vomiting, diarrhea, skin color changes, wheezing, cough, chest pain, heart palpitations PMFSH Past Medical History Medical History Anxiety Erectile dysfunction EtOH dependence Meniere disease Family History Family History Father Congestive heart failure Mother Congestive heart failure Sibling Congestive heart failure Social History Social History Smoking packs per day: 1 Smoking cigarettes per day: 20.0 Years smoked: 35 Smoking pack-years: 35.00 Smoking status: Current every day smoker Tobacco type: cigarettes Second hand tobacco smoke exposure: No Alcohol intake: current Drinks per week: 14 Substance use: former Substance use type: crack/cocaine Last use: 2-3 weeks Spiritual care concerns: No Comments I have reviewed and agree with the patient's past medical, surgical, social, and family hx as documented by the RN. There is no relevant family history pertinent to the presenting complaint. Exam Narrative: GENERAL: Well-appearing, well-nourished, and in no acute distress. HEAD: Normocephalic, atraumatic. No sinus tenderness or facial swelling appreciated. EYES: PERRLA and EOMI. No evidence of erythema, swelling, or drainage. ENT: Bilateral external ears and ear canals normal. Bilateral TMs are normal.No TM perforation. Nares clear, no rhinorrhea or epistaxis. Bilateral turbinates without erythema/ swelling. Mucous membranes moist and pink. Uvula is midline with mild swelling otherwise oropharynx is normal. Breath odor and voice normal. NECK: Supple. No Lymphadenopathy or nuchal rigidity appreciated. CHEST: Bilateral lung damon are clear to auscultation. No respiratory distress. No evidence of cough or pleuritic cp upon examination. HEART: Regular rate and rhythm. No murmur, gallop, or rub heard. EXTREMITIES: Normal range of motion. No edema. SKIN: Warm, dry, no rash. NEURO: No focal deficits. Alert and oriented x3. PSYCH: Patient is clean and well groomed. He is uncooperative. Eye contact is good. No psychomotor impairment. Pt appears anxious, irritable and angry. Argumentative. Affect is consistent with mood. Speech is normal rate and volume. Thought processes and content are intact. Concentration and focus are intact. Insight and judgement are limited. Memory is good. Denies suicidal ideation, homicidal ideation, psychosis, and jeannie. Course Course Emergency Course: The patient/guardian displays adequate decision making capability and despite a detailed discussion of alternatives, benefits, risks, and consequences refuses all express care testing/labs/ekg/xray and transfer to er via ems. Will transport via POV. Level of Care: Express Care Visit Vital Signs Vital signs: Vital Signs Temperature 97.6 F 05/25/22 16:59 Pulse Rate 66 05/25/22 16:59 Respiratory Rate 18 05/25/22 16:5
== END 2022-05-25 17:10 | disposition short-term general hospital (02) ==
PROVIDERS: Emergency Provider Nurse Practitioner Family; PCP Physician Assistant Medical
DX: R42 Dizziness and giddiness (principal); R06.02 Shortness of breath; F17.210 Nicotine dependence, cigarettes, uncomplicated; F41.9 Anxiety disorder, unspecified
CPT/HCPCS: 99212; G0463

== ENCOUNTER 2022-05-25 17:23 | Emergency (ER) | payer BC, SELFPAY ==
--- NOTE | 2022-05-25 18:00 | PC.NURSE ---
Per pharmacy technician trainee, pt decided to leave prior to being triaged and after checking in at intake.
== END 2022-05-25 18:00 | disposition left against medical advice (07) ==
PROVIDERS: PCP Physician Assistant Medical
DX: Z53.21 Procedure and treatment not carried out due to patient leaving prior to being seen by health care provider (principal)
CPT/HCPCS: 99199

== ENCOUNTER 2022-08-15 10:15 | Outpatient (RCR) | payer BC, SELFPAY ==
--- NOTE | 2022-07-23 15:28 | BUPTOPEVAL1 ---
Assessment and note entered by Milena Gutierrez, PT Evaluation Information Assessment Status Evaluation Diagnosis weakness and unsteadiness Onset 07/02/2022 Subjective Information Meniere's Dz 12 years ago. Had Covid about a month ago, and also a long time ago. This time had a headache for about 4-5 days that could not get rid off. Ended up taking a lot of tylenol, noted one morning in the mirror was jaundiced about 3 weeks ago. Was in [facility] two weeks, got home one week ago. Was in ICU a week also. Reported Pain Level Pain Score 0: Self Report Assessment PT Clinical Summary Pt presents w/ c/o weakness, unsteadiness on feet and endurance. Pt also reports he is a recovering alcoholic, recently had covid, was hospitalized for malnutrition just returning home last week. Pt demo's decreased strength overall with BLEs, greatly decreased endurance, decreased static and dynamic balance with co-morbidity of Meniere's dz. Pt will benefit from therapy to address deficits and return to PLOF of 3 weeks ago. Plan of Care Interventions Gait Training,Neuro Re-education,Therapeutic Activities,Therapeutic Exercise,Self-Care/Home Management PT Services Indicated Yes Treatment Frequency and 1-2x per week x 4-6 weeks Duration These treatments will address the objective and functional deficits as defined above. The patient will be advanced safely and appropriately in order for the patient to progress towards his/her prior level of function. Additional exercises will be introduced and as well as a comprehensive home exercise program upon discharge, if needed, ?to ensure carryover of functional gains achieved in the clinic. This treatment plan has been reviewed and agreement upon by the patient.
--- NOTE | 2022-08-06 14:57 | PCPTNOTE ---
Patient called & cancelled scheduled appointment this date due to scheduling conflict.
--- NOTE | 2022-08-15 17:26 | BUPTOPDC ---
Assessment and note entered by Milena Gutierrez, PT Assessment Status Discharge Report Diagnosis weakness and unsteadiness Onset 07/02/2022 Subjective Information Meniere's Dz 12 years ago. Reports his labs have returned to normal. Pt reports feeling overall about 50% better. Lifting 60 lb bags of conrete is very challenging. States he will be out of town for a time and would like to close his chart. Assessment PT Clinical Summary Pt demo's improved endurance, strength, and balance overall. POC is being ceased early d/t pt being out of town for an extended period. Pt was educated on return to therapy at a later date should he be available and he feel it is necessary to continue progression. Plan of Care Discharge
== END 2022-08-18 10:40 | disposition home or self-care (01) ==
LOC: ANHHIPT 10:15
PROVIDERS: PCP Physician Assistant Medical; Visit Provider Physician Assistant Medical
DX: R26.81 Unsteadiness on feet (principal); R53.1 Weakness
CPT/HCPCS: 97110; 97112; 97161

== ENCOUNTER 2024-05-05 02:42 | Inpatient (IN) | payer MEDICARE, BC, SELFPAY ==
[2024-05-05] VITALS (45 sets, daily range): BP systolic 119–185; BP diastolic 78–111; PULSE 76–107; RESP 15–20; TEMP 36.1–36.5; O2SAT 91–100; BMI 25.0
--- NOTE | ~2024-05-05 | XR_ITS ---
EXAMINATION: XR chest 1V DATE: 05/05/2024 12:30 INDICATION: Left-sided chest pain TECHNIQUE: Lateral view of the chest was obtained. COMPARISON: Chest radiograph dated 05/05/24 and right shoulder radiographs dated 03/30/2023 FINDINGS: The lungs are clear with no focal airspace opacities, pulmonary edema, pleural effusion or pneumothor ax. Heart size is normal. Mild to moderate thoracic spondylosis with a few chronic compression fractu res in the midthoracic spine. IMPRESSION: 1. No acute cardiopulmonary disease. Reviewed, dictated and finalized at location A.
--- NOTE | ~2024-05-05 | XR_ITS ---
EXAMINATION: XR chest 1V portable 05/05/2024 03:28 INDICATION: Chest pain and anxiety PROCEDURE: AP portable chest COMPARISON: No prior studies for comparison. FINDINGS: The lungs are clear. The cardiomediastinal silhouette is within normal limits. There are no pleural effusions. There is no pneumothorax suspected. IMPRESSION: 1: NO ACUTE CARDIOPULMONARY DISEASE. Reviewed, dictated and finalized at location B.
--- NOTE | ~2024-05-05 | CT_ITS ---
EXAMINATION: CT cervical spine wo con DATE: 05/05/2024 05:07 INDICATION: Fall with head injury TECHNIQUE: Computed tomography (CT) of the cervical spine was performed without intravenous contrast. Automated exposure control and iterative reconstruction technique were employed. The dose-length pro duct was 413.07 mGy-cm. COMPARISON: None FINDINGS: Alignment is normal. Vertebral body heights are normal. No fracture. Disc height loss throughout the cervical spine, moderate at C3-C4 and mild at the remaining levels. Disc bulges or disc osteophyte co mplex result in mild central canal stenosis at each of these levels. Multilevel uncovertebral osteoar thritis, mild at C2-C3 and C6-C7 and moderate at C3-C4 through C5-C6. Severe right-sided and moderate left-sided facet osteoarthritis at C2-C3 and C3-C4 with mild facet osteoarthritis and more caudal ce rvical spine. There is moderate to severe neural foraminal stenosis on the left at C5-C6, moderate ne ural foraminal stenosis on the right at C5-C6 and bilaterally at C3-C4 and mild at the remaining cerv ical levels. Atherosclerotic calcification is at the bilateral carotid bulbs. Cervical soft tissues a re otherwise unremarkable. Visualized apices of lungs are clear. IMPRESSION: 1. Mild to moderate cervical spondylosis. No acute osseous abnormality. Reviewed, dictated and finalized at location A.
--- NOTE | ~2024-05-05 | CT_ITS ---
EXAMINATION: CT brain wo con DATE: 05/05/2024 05:07 INDICATION: Head injury post fall. Ethanol intoxication TECHNIQUE: Computed tomography (CT) of the head was performed without intravenous contrast. Sagittal and coronal reconstructions were performed. The mA was adjusted according to patient size. Iterative reconstruction technique was employed. The dose-length product was 605.33 mGy-cm. COMPARISON: None FINDINGS: Right upper preseptal soft tissue swelling. Changes of bilateral intraocular lens replacement. Orbit s are otherwise unremarkable. No fracture. No acute intracranial hemorrhage, acute infarction or abno rmal extra axial fluid collection. Ventricles are normal and symmetric. No mass/mass effect. There is mild mucosal thickening in the ethmoid sinuses. The orbits and mastoid air cells are normal. IMPRESSION: 1. Right periorbital soft tissue swelling. No fracture or acute intracranial process. Reviewed, dictated and finalized at location A. IMPRESSION: 1. Right periorbital soft tissue swelling. No fracture or acute intracranial pr ocess.
--- NOTE | ~2024-05-05 | CT_ITS ---
EXAMINATION: CT abdomen pelvis w con DATE: 05/05/2024 05:07 INDICATION: Left flank bruising post fall TECHNIQUE: Computed tomography (CT) of the abdomen and pelvis was performed with 100 mL Omnipaque-350 intravenous contrast. Automated exposure control and iterative reconstruction technique were employe d. The dose-length product was 611.39 mGy-cm. COMPARISON: None FINDINGS: Mild discoid atelectasis in bilateral lower lobes. Heart size is normal. No pericardial or pleural ef fusion. Diffuse hepatic steatosis. Gallbladder, spleen, pancreas, right kidney and bilateral adrenal glands are normal. 2.3 cm cyst at the lower pole of the left kidney. Bladder is normal. Prostatic eduardo cification is. Bowels including the appendix are normal. No free intraperitoneal gas or fluid. No pat hologically enlarged abdominal or pelvic lymphadenopathy. There is calcified atherosclerosis of the a nick and many of the other arteries. There are few old healed left rib fractures. Chronic appearing s uperior endplate compression fractures at T10, T11 and L4. Mild lumbar and lower thoracic spondylosis . Partially visualized small soft tissue densities in the subcutaneous fat at the lateral right butto ck likely representing a small posttraumatic hematoma. Subtle enhancement at the periphery of a 3.2 x 2.7 x 3.3 cm fluid collection along the inferomedial margin of the left gluteus elana muscle as it passes across the left ischial tuberosity. There is a small contusion in the subcutaneous fat overly ing the left superior iliac spine. IMPRESSION: 1. No acute fracture or acute intra-abdominal/pelvic process. 2. 3.3 x 3.2 x 2.7 cm fluid collection along the inferomedial margin of the distal left gluteus mediu s elana muscle or extends across the initial tuberosity. Differential would include bursitis, hemat carlita or abscess in the appropriate clinical setting. Reviewed, dictated and finalized at location A. IMPRESSION: 1. No acute fracture or acute intra-abdominal/pelvic process. 2. 3.3 x 3.2 x 2.7 cm fluid collection along the inferomedial margin of the dis cesar left gluteus medius elana muscle or extends across the initial tuberosity . Differential would include bursitis, hematoma or abscess in the appropriate c linical setting.
--- NOTE | 2024-05-05 02:44 | ECG_ITS ---
Test Date: 2024-05-05 02:49:57 Measurements Intervals Fisher Rate: 87 P: 50 OR: 183 QRS: -17 QRSD: 101 T: 55 QT: 360 QTc: 434 Interpretive Statements SINUS RHYTHM BASELINE ARTIFACT- I, II, III, AVR, AVL, AVF, V2 NORMAL ECG No previous ECG available for comparison Electronically Signed On 05-05-2024 05:44:31 CDT by Robles Bennett D.O.
--- NOTE | 2024-05-05 03:59 | ED.GENADULT ---
HPI - General Adult General Chief complaint: Alcohol <Lucia Bruce MD - Last Filed: 05/05/24 07:18> Stated complaint: [place] CUSTODY, MULTIPLE C/O <Lucia Bruce MD - Last Filed: 05/05/24 07:18> Time Seen by Provider: 05/05/24 02:44 <Lucia Bruce MD - Last Filed: 05/05/24 07:18> History of Present Illness HPI narrative: Patient brought here by police after they found him driving erratically, pulled him over, and found that he was intoxicated. Patient then told him that he was very anxious and had been drinking heavily the last few days, that he may be withdrawing and was having a lot of anxiety and some chest discomfort. <Lucia Bruce MD - Last Filed: 05/05/24 07:18> Related Data Allergies/adverse reactions: Allergies Allergy/AdvReac Type Severity Reaction Status Date / Time No Known Allergies Allergy Verified 06/30/23 11:35 <Lucia Bruce MD - Last Filed: 05/05/24 07:18> Review of Systems Review of Systems: per HPI <Lucia Bruce MD - Last Filed: 05/05/24 07:18> [facility] Past Medical History Medical History: Medical History (Updated 05/05/24 @ 04:34 by Lucia Bruce MD) A-fib Alcohol withdrawal Anxiety Dyspepsia Elevated liver enzymes Erectile dysfunction EtOH dependence Eustachian tube disorder Hypokalemia Jaundice Lesion of penis Meniere disease Skin infection Tobacco dependence Wound, open, elbow <Lucia Bruce MD - Last Filed: 05/05/24 07:18> Surgical History Surgical History: Surgical History (Updated 06/30/23 @ 11:53 by Mary Beth Butt MA) History of facial surgery Nose <Lucia Bruce MD - Last Filed: 05/05/24 07:18> Family History Family History: Family History Father Congestive heart failure Mother Congestive heart failure Sibling Congestive heart failure <Lucia Bruce MD - Last Filed: 05/05/24 07:18> Social History Social History: Social History Smoking packs per day: 1 Smoking cigarettes per day: 20.0 Years smoked: 35 Smoking pack-years: 35.00 Smoking status: Current every day smoker Tobacco type: cigarettes Second hand tobacco smoke exposure: No Alcohol intake: former Drinks per week: 14 Alcohol use details: sober about 3mo, was in rehab Substance use: former Substance use type: crack/cocaine Last use: 2-3 weeks Lack of Transportation: No Lack of Food: Never True Current Housing: I Have Housing Concerned About Future Housing: No Difficulty Paying Gas/Electric Bills: No Difficulty Paying for Meds: No Currently Unemployed: No Education: High School Diploma/GED Difficulty w/ Childcare or Family Care: No Living arrangements: with family Occupation/Education: retired Gender identity (if verbalized by the patient): Male Sexual Orientation (if Verbalized by the Patient): Straight or Heterosexual Spiritual care concerns: No <Lucia Bruce MD - Last Filed: 05/05/24 07:18> Exam Narrative: EXAMINATION OF ORGAN SYSTEMS/BODY AREAS: Constitutional: Vital signs per nursing GENERAL: appears acutely intoxicated HEAD: bruising to face EYES: right sided black eye, extraocular movement intact ENT: Hearing grossly intact LUNGS: Nonlabored breathing. HEART: [Regular rate and rhythm] ABD: [Soft], [nontender to palpation], left flank bruising EXT: Normal range of motion SKIN: bruising as above NEURO: [Alert. intoxicated.] PSYCH: nervous affect <Lucia Bruce MD - Last Filed: 05/05/24 07:18> Course Reevaluation(s) Reevaluation #1: Patient care was signed out to me the overnight physician. Disposition was pending the patient ambulating. Patient is no longer intoxicated patient is able to ambulate at his baseline. Patient is being discharged to home. Patient is not able to find a ride, patient's car is impounded until 2:00 a.m.. Patient is taking
[2024-05-05 04:11] LABS: Basophils Absolute Auto 0.1 K/mm3 (0.0-0.1); Basophils Percent Auto 0.7 % (0.2-1.2); Eosinophils Absolute Auto 0.1 K/mm3 (0-0.3); Eosinophils Percent Auto 1.3 % (0-4.4); Hemoglobin 13.2 g/dL (14.0-18.0); Immature Granulocyte Absolute 0.04 K/mm3 (0.00-0.031); Immature Granulocyte Percent A 0.5 % (0-0.5); Immature Platelet Fraction Pct 3.4 % (0.9-11.2); Lymphocytes Absolute Auto 2.12 K/mm3 (0.9-3.2); Lymphocytes Percent Auto 27.9 % (18.3-44.2); Mean Corpuscular HGB Conc 33.8 g/dl (32-36); Mean Corpuscular Volume 94.7 fl (80-100); Mean Platelet Volume 9.6 fl (7.4-10.4); Monocytes Absolute Auto 0.7 K/mm3 (0.1-0.6); Monocytes Percent Auto 8.9 % (2.6-8.5); Neutrophils Absolute Auto 4.6 K/mm3 (1.3-6.7); Neutrophils Percent Auto 60.7 % (45.5-73.1); Platelet Count Result 221 k/mm3 (150-375); Red Blood Count 4.12 M/mm3 (4.6-6.20); Red Cell Distribution Width 15.9 % (11.5-14.5); White Blood Count 7.6 K/mm3 (4.5-10.0)
[2024-05-05] MEDS: LORazepam (*CRX) 0.5 MG TABLET PO (04:15)
[2024-05-05 04:17] LABS: Ethanol 295 mg/dL (<10)
[2024-05-05 04:18] LABS: Alanine Aminotransferase 18 U/L (6-50); Albumin Level 4.2 g/dL (3.5-5.1); Alkaline Phosphatase 103 U/L (38-126); Anion Gap 9 mmol/L (4-12); Aspartate Amino Transferase 41 U/L (17-59); Bilirubin,Total 0.7 mg/dL (0.2-1.3); Blood Urea Nitrogen 8 mg/dL (9-20); Calcium 8.4 mg/dL (8.4-10.2); Carbon Dioxide 29 mmol/L (22-30); Chloride 105 mmol/L (98-107); Estimated CRCL calculation 75 ml/min; Estimated Glomerular Filt Rate > 60; Glucose 85 mg/dL (65-110); Potassium 3.9 mmol/L (3.4-5.0); Sodium 143 mmol/L (137-145)
--- NOTE | 2024-05-05 07:36 | PC.NURSE ---
Assumed care of patient. Pt A&Ox3 but remains intoxicated. Pt requested to use the RR, attempted to walk patient to assess capability, pt with staggering gait, appeared unbalanced, returned pt to bed with x1 assistance. Pt provided urinal. Pt then laid down and went to sleep. Pt on monitor. made aware, plan to keep patient longer for further sobriety.
[2024-05-05] MEDS: ONDANSETRON INJ 4 MG/2 ML VIAL IV PUSH (11:18)
[2024-05-05] MEDS: PANTOPRAZOLE SODIUM IV 40 MG VIAL IV PUSH (11:21)
[2024-05-05] MEDS: HYDROcodone/acetaminophen (*CRX) 5-325 MG TABLET 1 TAB PO (12:00)
--- NOTE | 2024-05-05 15:00 | PC.NURSE ---
Attempted to ambulate patient. Pt continues to have very staggered gait, very similar to gait this am when pt was more intoxicated. Pt states that he feels like his equilibrium is off. RN asked patient if he feels like he is still intoxicated, patient said no. RN asked if he has been having vertigo recently, pt reports It's my meniere's, it gets bad for 3-4 days at a time when I walk around. But when I sit I'm fine, so I can drive fine, but walking I feel off balanced. MD Nunes made aware. Pt reports he does not have anyone that would be able to pick him up from ED, and also states his wallet/any form of payment for a cab is in his truck which got towed. RN speaking to charge nurse, , and nurse case management to figure out plan for safe pt discharge. Pt reports feeling anxious about his DUI and getting his truck back, and asking for something for anxiety.
[2024-05-05] MEDS: LORazepam INJ (*CRX) 2 MG/ML VIAL 1 MG IV PUSH ×2 (15:38→19:56)
[2024-05-05] MEDS: LORazepam INJ (*CRX) 2 MG/ML VIAL IV PUSH ×3 (18:10→23:55)
--- NOTE | 2024-05-05 18:17 | PC.NURSE ---
Pt was wanting to be discharged all afternoon. Pt does not plan to stop drinking alcohol, just wanted to get to his truck which was towed. Took extensive planning by RN, charge lpnMD, case fitter, as pt lives far away from hospital, but his personal truck has a hold on it by PD and pt is unable to get his truck until at least 0200am on 05/06/24. Pt did not arrive to ED with any belongings, his wallet/phone/payment methods all were left in his truck, so pt unable to call cab or get hotel, etc. PD able to retrieve wallet and phone for him, however cab required [place] which pt did not have. Called case fitter again to help with arrangements. With prolonged discharge planning, pt started exhibiting withdrawal symptoms. Pt then placed back on monitors, IV reinitiated, pt given IV medication per OCT. Pt agrees to admission to treat his withdrawal.
--- NOTE | 2024-05-05 19:56 | PM.IMHP ---
H&P: HPI History of Present Illness Date/Time: 05/05/24 19:56 Chief Complaint: Alcohol withdrawal Narrative: this is a 64-year-old male patient who has a history of alcoholism. The patient has gone through rehab and has been sober on and off. The patient stated that he had gone on a drinking binge But also stated that he has been sober over the last 3 days. however the please had found him to be intoxicated and was very anxious. The patient told the police that he was having anxiety and having some chest discomfort. The patient stated that he has Meniere's disease and has been falling frequently. The patient was brought in to the emergency room by the police after they found him driving erratically. He had been in police custody at the time of the emergency room visit. His blood pressure was found to be 145/111 in the emergency room. The patient had spent the night in the emergency room and was not able to go home because his car was impounded. The patient did not have anybody to pick him up from the emergency room. he then became more anxious in the emergency room and started to have alcohol withdrawal. He was given Several doses of Ativan in the emergency room. He was also given pantoprazole and Zofran. his H&H was found to be 13.2 and 39.0 which is comparable to his past labs. His ethyl alcohol was noted to be 295. His chest x-ray shows no acute cardiopulmonary disease. His CT of his abdomen shows the following1. No acute fracture or acute intra-abdominal/pelvic process. 2. 3.3 x 3.2 x 2.7 cm fluid collection along the inferomedial margin of the distal left gluteus medius elana muscle or extends across the initial tuberosity. Differential would include bursitis, hematoma or abscess in the appropriate clinical setting. CT of the spine showed mild to moderate cervical spondylosis no acute osseous abnormality. Head CT shows right periorbital soft tissue swelling. No fracture acute intracranial process. Patient was noted to have multiple bruises on his face. The patient is being admitted to observation status on the date of service of 05/05/2024. Review of Systems Review of Systems: All systems reviewed & are unremarkable except as noted in HPI and below Constitutional: Constitutional: Reports as per HPI and Reports no additional constitutional complaints Eyes: Eyes: Reports as per HPI and Reports no additional eye complaints ENT: Reports system reviewed and no additional complaints, except as documented and Reports Normal hearing present Comments: Reports dizziness with Meniere's disease Cardiovascular: Cardiovascular: Reports no additional cardiovascular complaints Respiratory: Respiratory: Reports no additional respiratory complaints and Reports no additional respiratory complaints Gastrointestinal: Gastrointestinal: Reports as per HPI and Reports no additional gastrointestinal complaints Comments: occasional nausea Musculoskeletal: Musculoskeletal: Reports no additional musculoskeletal complaints Comments: multiple bruises Integumentary/Breasts: Skin/Breast: Reports system reviewed and no additional complaints, except as docu and Reports as per HPI Neurologic: Reports system reviewed and no additional complaints, except as documented, Reports as per HPI and Reports Normal hearing present Comments: shaking hand Psychiatric: Psychiatric: Reports no additional psychiatric complaints and Reports as per HPI Endocrine: Endocrine: Reports no additional endocrine complaints Hematologic/Lymphatic: Hematologic/Lymphatic: Reports no additional hematologic/lymphatic complaints Allergic/Immunologic: Allergic/Immunologic: Reports no additional allergic/immunologic complaints PMFSH Past Medical History Medical History A-fib Alcohol withdrawal Anxiety Dyspepsia Elevated liver enzymes Erectile dysfunction EtOH dependence Eustachian tube
[2024-05-05] MEDS: NICOTINE (*PBKC) 21 MG PATCH 1 PATCH TRANSDERM (21:23)
[2024-05-05] MEDS: cloNIDine HCL 0.1 MG TABLET PO (21:23)
[2024-05-06] VITALS (13 sets, daily range): BP systolic 118–161; BP diastolic 70–93; PULSE 62–94; RESP 16–20; TEMP 36.2–36.8; O2SAT 95–100
[2024-05-06 00:12] LABS: Hepatitis B Surface Antigen Negative (Negative)
[2024-05-06 00:20] LABS: Glucose Point of Care 93 mg/dl (65-105)
[2024-05-06 00:20] LABS: HAV RESULT Negative (Negative); Hepatitis B Core IgM Result Negative (Negative)
[2024-05-06 00:28] LABS: HIV 1/2 Ab P24 Ag Result Negative (Negative)
[2024-05-06 00:30] LABS: Hepatitis C Virus Antibody Negative (Negative)
--- NOTE | 2024-05-06 01:00 | ADMGEN ---
This patient, Petr Kelley, was admitted to IMU Room 232-01 on at 1925. Patient/family oriented to hospital policies and general routines including ID bracelet, bed and alarms, visiting hours, pain management, procedures, bathroom and other care routines, personal items, smoking policy, room service/diet, and visiting hours. Information on how to activate the Rapid Response Team has been discussed. Patient/Family are encouraged to report perceived risks to care and to ask questions if they do not understand what they are told or what they should do.
[2024-05-06] MEDS: LORazepam INJ (*CRX) 2 MG/ML VIAL IV PUSH ×2 (04:25→08:29)
[2024-05-06 05:44] LABS: Basophils Percent Auto 0.6 % (0.2-1.2); Eosinophils Absolute Auto 0.1 K/mm3 (0-0.3); Eosinophils Percent Auto 2.4 % (0-4.4); Hematocrit 35.3 % (42.0-52.0); Hemoglobin 11.8 g/dL (14.0-18.0); Immature Granulocyte Absolute 0.03 K/mm3 (0.00-0.031); Immature Granulocyte Percent A 0.6 % (0-0.5); Lymphocytes Absolute Auto 1.24 K/mm3 (0.9-3.2); Lymphocytes Percent Auto 24.8 % (18.3-44.2); Mean Corpuscular HGB Conc 33.4 g/dl (32-36); Mean Corpuscular Hemoglobin 31.5 pg (26-34); Mean Corpuscular Volume 94.1 fl (80-100); Mean Platelet Volume 9.2 fl (7.4-10.4); Monocytes Absolute Auto 0.4 K/mm3 (0.1-0.6); Monocytes Percent Auto 8.2 % (2.6-8.5); Neutrophils Absolute Auto 3.2 K/mm3 (1.3-6.7); Neutrophils Percent Auto 63.4 % (45.5-73.1); Platelet Count Result 179 k/mm3 (150-375); Red Blood Count 3.75 M/mm3 (4.6-6.20); Red Cell Distribution Width 15.3 % (11.5-14.5)
[2024-05-06 05:47] LABS: Anion Gap 3 mmol/L (4-12); Blood Urea Nitrogen 10 mg/dL (9-20); Carbon Dioxide 30 mmol/L (22-30); Chloride 100 mmol/L (98-107); Estimated CRCL calculation 86 ml/min; Estimated Glomerular Filt Rate > 60; Glucose 85 mg/dL (65-110); Magnesium 1.9 mg/dL (1.6-2.3); Potassium 3.3 mmol/L (3.4-5.0); Sodium 133 mmol/L (137-145)
[2024-05-06 06:33] LABS: Glucose Point of Care 174 mg/dl (65-105)
[2024-05-06] MEDS: cloNIDine HCL 0.1 MG TABLET PO ×2 (08:25→20:24)
[2024-05-06] MEDS: THIAMINE HCL 200 MG/2 ML VIAL 100 MG IV PUSH (08:25)
[2024-05-06] MEDS: NICOTINE (*PBKC) 21 MG PATCH 1 PATCH TRANSDERM (08:25)
[2024-05-06] MEDS: FOLIC ACID 1 MG TABLET PO (08:25)
[2024-05-06] MEDS: ONDANSETRON INJ 4 MG/2 ML VIAL IV PUSH (08:26)
[2024-05-06 11:34] LABS: Glucose Point of Care 114 mg/dl (65-105)
[2024-05-06] MEDS: chlordiazePOXIDE (*CRX) 25 MG CAPSULE PO ×3 (12:46→23:28)
[2024-05-06] MEDS: POTASSIUM CHLORIDE 20 MEQ ER TABLET 40 MEQ PO (12:46)
--- NOTE | 2024-05-06 15:12 | PM.IMPN ---
Progress Note: A&P Assessment and Plan (1) Alcohol withdrawal: Code(s): F10.939 - Alcohol use, unspecified with withdrawal, unspecified Status: Acute Assessment and Plan: continue with CIWA protocol. The patient is in IMU. The patient is anxious and slightly shaky at this time. He is also irritable. He was started on folic acid and thiamin. student outreach coordinator has been consulted. The patient stated he has been struggling with alcoholism for the last 8 years. He has been sober on and off but then has periods of bingeing. He is receiving a banana back tonight and then will continue with folic acid thiamin tomorrow. I also started him on clonidine since he has hypertension with the withdrawal symptoms. today patient feel drowsy possibly from Ativan he has received 2mg IV q2hr, will reduce it to 1mg, will start on librium 25mg PO q6 for 48hrs and monitor with CIWA protocol, patient will benefit going to alcohol withdrawal center. Will continue to monitor will have a PT OT evaluate the patient and further recommendation to follow. (2) Tobacco dependence: Code(s): F17.200 - Nicotine dependence, unspecified, uncomplicated Status: Acute Assessment and Plan: The patient has been offered a nicotine patch and he has accepted. Subjective Date/time seen: 05/06/24 15:12 Interval history: H&P HPI-Narrative: this is a 64-year-old male patient who has a history of alcoholism. The patient has gone through rehab and has been sober on and off. The patient stated that he had gone on a drinking binge But also stated that he has been sober over the last 3 days. however the please had found him to be intoxicated and was very anxious. The patient told the police that he was having anxiety and having some chest discomfort. The patient stated that he has Meniere's disease and has been falling frequently. The patient was brought in to the emergency room by the police after they found him driving erratically. He had been in police custody at the time of the emergency room visit. His blood pressure was found to be 145/111 in the emergency room. The patient had spent the night in the emergency room and was not able to go home because his car was impounded. The patient did not have anybody to pick him up from the emergency room. he then became more anxious in the emergency room and started to have alcohol withdrawal. He was given Several doses of Ativan in the emergency room. He was also given pantoprazole and Zofran. his H&H was found to be 13.2 and 39.0 which is comparable to his past labs. His ethyl alcohol was noted to be 295. His chest x-ray shows no acute cardiopulmonary disease. His CT of his abdomen shows the following1. No acute fracture or acute intra-abdominal/pelvic process. 2. 3.3 x 3.2 x 2.7 cm fluid collection along the inferomedial margin of the distal left gluteus medius elana muscle or extends across the initial tuberosity. Differential would include bursitis, hematoma or abscess in the appropriate clinical setting. CT of the spine showed mild to moderate cervical spondylosis no acute osseous abnormality. Head CT shows right periorbital soft tissue swelling. No fracture acute intracranial process. Patient was noted to have multiple bruises on his face. The patient is being admitted to observation status on the date of service of 05/05/2024. today patient feel drowsy possibly from Ativan he has received 2mg IV q2hr, will reduce it to 1mg, will start on librium 25mg PO q6 for 48hrs and monitor with CIWA protocol, patient will benefit going to alcohol withdrawal center. Will continue to monitor will have a PT OT evaluate the patient and further recommendation to follow. Review of Systems Review of Systems: All systems reviewed & are unremarkable except as noted in HPI and below Exam Narrative: Patient is comfortable, NAD HEENT: eyes are clear and none icteric LUNGS:CTA HEART: RR S1S2
--- NOTE | 2024-05-06 15:25 | PC.NURSE ---
This RN gave report to receiving RN
--- NOTE | 2024-05-06 16:10 | PC.NURSE ---
This patient, Petr Kelley, was received from IMU on 05/06/24 at 1610. Patient/family oriented to unit policies and routines.
--- NOTE | 2024-05-06 16:11 | PC.NURSE ---
Pt transferred from IMU to 3MS room 326.
[2024-05-06] MEDS: ACETAMINOPHEN 325 MG TABLET 650 MG PO ×2 (17:32→23:28)
[2024-05-06] MEDS: LORazepam INJ (*CRX) 2 MG/ML VIAL 1 MG IV PUSH (20:23)
[2024-05-07] VITALS: BP 114/83; PULSE 63; PULSE 73; RESP 20; TEMP 36.6; O2SAT 97
[2024-05-07] MEDS: LORazepam INJ (*CRX) 2 MG/ML VIAL 1 MG IV PUSH ×2 (03:11→08:56)
[2024-05-07 04:00] VITALS: PULSE 78
[2024-05-07] MEDS: ACETAMINOPHEN 325 MG TABLET 650 MG PO (05:43)
[2024-05-07] MEDS: chlordiazePOXIDE (*CRX) 25 MG CAPSULE PO ×2 (05:44→13:00)
[2024-05-07 08:00] VITALS: BP 121/86; PULSE 74; RESP 17; TEMP 36.2; O2SAT 96
[2024-05-07] MEDS: cloNIDine HCL 0.1 MG TABLET PO (08:56)
[2024-05-07] MEDS: FOLIC ACID 1 MG TABLET PO (08:56)
[2024-05-07] MEDS: THIAMINE HCL 200 MG/2 ML VIAL 100 MG IV PUSH (08:57)
[2024-05-07] MEDS: POTASSIUM CHLORIDE 20 MEQ ER TABLET 40 MEQ PO (10:31)
[2024-05-07 12:00] VITALS: BP 112/70
--- NOTE | 2024-05-07 13:01 | PC.NURSE ---
Pt refuses to wear churn operator at present.
--- NOTE | 2024-05-07 15:42 | PM.IMPN ---
Progress Note: A&P Assessment and Plan (1) Alcohol withdrawal: Code(s): F10.939 - Alcohol use, unspecified with withdrawal, unspecified Status: Acute Assessment and Plan: Continue with CIWA protocol. He was started on folic acid and thiamin. conference coordinator has been consulted. The patient stated he has been struggling with alcoholism for the last 8 years. He has been sober on and off but then has periods of bingeing. He is receiving librium 25mg PO q6 for 48hrs and monitor with CIWA protocol, patient will benefit going to alcohol withdrawal center. Will continue to monitor will have a PT OT evaluate the patient and further recommendation to follow. (2) Tobacco dependence: Code(s): F17.200 - Nicotine dependence, unspecified, uncomplicated Status: Acute Assessment and Plan: The patient has been offered a nicotine patch and he has accepted. Subjective Date/time seen: 05/07/24 15:42 Interval history: H&P HPI-Narrative: this is a 64-year-old male patient who has a history of alcoholism. The patient has gone through rehab and has been sober on and off. The patient stated that he had gone on a drinking binge But also stated that he has been sober over the last 3 days. however the please had found him to be intoxicated and was very anxious. The patient told the police that he was having anxiety and having some chest discomfort. The patient stated that he has Meniere's disease and has been falling frequently. The patient was brought in to the emergency room by the police after they found him driving erratically. He had been in police custody at the time of the emergency room visit. His blood pressure was found to be 145/111 in the emergency room. The patient had spent the night in the emergency room and was not able to go home because his car was impounded. The patient did not have anybody to pick him up from the emergency room. he then became more anxious in the emergency room and started to have alcohol withdrawal. He was given Several doses of Ativan in the emergency room. He was also given pantoprazole and Zofran. his H&H was found to be 13.2 and 39.0 which is comparable to his past labs. His ethyl alcohol was noted to be 295. His chest x-ray shows no acute cardiopulmonary disease. His CT of his abdomen shows the following1. No acute fracture or acute intra-abdominal/pelvic process. 2. 3.3 x 3.2 x 2.7 cm fluid collection along the inferomedial margin of the distal left gluteus medius elana muscle or extends across the initial tuberosity. Differential would include bursitis, hematoma or abscess in the appropriate clinical setting. CT of the spine showed mild to moderate cervical spondylosis no acute osseous abnormality. Head CT shows right periorbital soft tissue swelling. No fracture acute intracranial process. Patient was noted to have multiple bruises on his face. The patient is being admitted to observation status on the date of service of 05/05/2024. today patient feel drowsy possibly from Ativan he has received 2mg IV q2hr, will reduce it to 1mg, will start on librium 25mg PO q6 for 48hrs and monitor with CIWA protocol, patient will benefit going to alcohol withdrawal center. Will continue to monitor will have a PT OT evaluate the patient and further recommendation to follow 05/07: . Patient denies any diaphoresis, anxiety, hallucinations, tremors or agitation. Patient is currently on scheduled dose of Librium 25 mg p.o. q.6 hours for 48 hours and continue CIWA. Review of Systems Review of Systems: All systems reviewed & are unremarkable except as noted in HPI and below Constitutional: Constitutional: Reports as per HPI and Reports no additional constitutional complaints Eyes: Eyes: Reports as per HPI and Reports no additional eye complaints ENT: Reports system reviewed and no additional complaints, except as documented and Reports Normal hearing present Cardiovascular: Car
--- NOTE | 2024-05-07 16:52 | PM.DS ---
DS: Admitting Diagnosis Discharge Date 05/07/24 Admitting Diagnosis Alcohol intoxication, Bruising, Fall DS: Summary Hospital Course Hospital Course: H&P HPI-Narrative: this is a 64-year-old male patient who has a history of alcoholism. The patient has gone through rehab and has been sober on and off. The patient stated that he had gone on a drinking binge But also stated that he has been sober over the last 3 days. however the please had found him to be intoxicated and was very anxious. The patient told the police that he was having anxiety and having some chest discomfort. The patient stated that he has Meniere's disease and has been falling frequently. The patient was brought in to the emergency room by the police after they found him driving erratically. He had been in police custody at the time of the emergency room visit. His blood pressure was found to be 145/111 in the emergency room. The patient had spent the night in the emergency room and was not able to go home because his car was impounded. The patient did not have anybody to pick him up from the emergency room. he then became more anxious in the emergency room and started to have alcohol withdrawal. He was given Several doses of Ativan in the emergency room. He was also given pantoprazole and Zofran. his H&H was found to be 13.2 and 39.0 which is comparable to his past labs. His ethyl alcohol was noted to be 295. His chest x-ray shows no acute cardiopulmonary disease. His CT of his abdomen shows the following1. No acute fracture or acute intra-abdominal/pelvic process. 2. 3.3 x 3.2 x 2.7 cm fluid collection along the inferomedial margin of the distal left gluteus medius elana muscle or extends across the initial tuberosity. Differential would include bursitis, hematoma or abscess in the appropriate clinical setting. CT of the spine showed mild to moderate cervical spondylosis no acute osseous abnormality. Head CT shows right periorbital soft tissue swelling. No fracture acute intracranial process. Patient was noted to have multiple bruises on his face. The patient is being admitted to observation status on the date of service of 05/05/2024. today patient feel drowsy possibly from Ativan he has received 2mg IV q2hr, will reduce it to 1mg, will start on librium 25mg PO q6 for 48hrs and monitor with CIWA protocol, patient will benefit going to alcohol withdrawal center. Will continue to monitor will have a PT OT evaluate the patient and further recommendation to follow 05/07: . Patient denies any diaphoresis, anxiety, hallucinations, tremors or agitation. Patient is currently on scheduled dose of Librium 25 mg p.o. q.6 hours for 48 hours and continue CIWA. Patient left AMA. Status at Discharge Cognitive/behavioral status at discharge: AMA Time Spent with Patient Time attestation: Total time spent providing and/or coordinating discharge services: 45 minutes DS: Data Imaging Radiologist's impression: ITS Impressions Head CT 05/05/24 06:44 IMPRESSION: 1. Right periorbital soft tissue swelling. No fracture or acute intracranial process. Cervical Spine CT 05/05/24 06:47 IMPRESSION: 1. Mild to moderate cervical spondylosis. No acute osseous abnormality. Abdomen/Pelvis CT 05/05/24 06:52 IMPRESSION: 1. No acute fracture or acute intra-abdominal/pelvic process. 2. 3.3 x 3.2 x 2.7 cm fluid collection along the inferomedial margin of the distal left gluteus medius elana muscle or extends across the initial tuberosity. Differential would include bursitis, hematoma or abscess in the appropriate clinical setting. Chest X-Ray 05/05/24 08:16 IMPRESSION: 1: NO ACUTE CARDIOPULMONARY DISEASE. Chest X-Ray 05/05/24 12:34 IMPRESSION: 1. No acute cardiopulmonary disease. Discharge Plan Discharge Attending physician on discharge: Asher West Discharging Clinician: Asher West Patient Disposition: [facility]
== END 2024-05-07 16:15 | disposition left against medical advice (07) | DRG 894 ==
LOC: ANHED 18:12 → ANHIMU 18:24 → ANH3MEDSUR 05-06 18:15
PROVIDERS: Nurse Practitioner; Admitting Provider Family Medicine; Emergency Provider Emergency Medicine; PCP Physician Assistant Medical; Visit Provider General Practice
DX: F10.239 Alcohol dependence with withdrawal, unspecified (principal); I48.20 Chronic atrial fibrillation, unspecified; F10.229 Alcohol dependence with intoxication, unspecified; F41.9 Anxiety disorder, unspecified; F17.210 Nicotine dependence, cigarettes, uncomplicated; F14.90 Cocaine use, unspecified, uncomplicated; H81.09 Meniere's disease, unspecified ear
CPT/HCPCS: 36415; 70450; 71045; 72125; 74177; 80048; 80053; 80074; 80307; 82948; 83735; 85025; 85055; 86703; 93005; 96366; 96375; 96376; 99285; A9270; G0378; G0432; J2060; J2405; J2470; J3411; J3475; J7030; Q9967